=== PATIENT | female | born 1980 | race Asian ===

== ENCOUNTER → 2017-12-04 | Outpatient (CLI) | payer BC ==
[~2017-12-04] MED LIST: DIAZEPAM 5 MG TABLET ONE
--- NOTE | 2017-12-10 13:38 | RADIOLOGY REPORT (SQ) ---
EXAM DESCRIPTION: MRI BREAST BILAT W AND/OR WO COMPLETED DATE/TIME: 12/04/2017 4:50 pm REASON FOR STUDY: UNSPECIFIED LUMP IN THE LEFT BREAST N63.20 UNSPECIFIED LUMP IN THE LEFT BREAST, U NSPECIFIED QUAD COMPARISON: None. PATHOLOGIC CORRELATION: None. CONTRAST TYPE AND DOSE: 10 mL Prohance. RENAL FUNCTION: None required. The patient is less than 50 years old. TECHNIQUE: MR imaging performed with a dedicated breast coil. Pre contrast T1 and T2 weighted images . Pre contrast and post contrast enhanced T1 weighted images with fat saturation. Subtraction images, 3D thick and thin MIPS, and kinetic analysis performed on an independent workstat ion. ([employer] workstation) Magnet strength: 1.5 T LIMITATIONS: Patient vomited after contrast administration. Postcontrast images were delayed 2-3 mi nutes. FINDINGS: BREAST DENSITY: d. The breasts are extremely dense, which lowers the sensitivity of mammog verenice. BACKGROUND PARENCHYMAL ENHANCEMENT:Minimal. RIGHT BREAST: Intact subpectoral implant. No enhancing or suspicious masses. No clumped, regional/ segmental ductal enhancement. CHEST WALL: Normal tissue planes. No abnormal internal mammary nodes. AXILLA: Normal axillary and retro-pectoral nodes. LEFT BREAST:Intact subpectoral implant. Enhancement adjacent to biopsy clip 3 o'clock about 4.5 cm d eep to the nipple. No clumped, regional/segmental ductal enhancement. CHEST WALL: Normal tissue planes. No abnormal internal mammary nodes. AXILLA: Normal axillary and retro-pectoral nodes. OTHER:No identified liver, bone, or lung lesions. No other significant incidental findings. IMPRESSION: Enhancement in the biopsy bed of the left breast. No other suspicious findings. BIRAD: RIGHT BREAST: 2 Benign findings. LEFT BREAST: Known DCIS. No additional lesions identified. RECOMMENDATION: RECOMMENDED FOLLOW-UP: Per Dr. Milligan. TECHNICAL DOCUMENTATION: JOB ID: [id number] [employer]- All Rights Reserved
== END ==
LOC: RAD 13:48
PROVIDERS: ATTEND Surgery
DX: C50.212 Malignant neoplasm of upper-inner quadrant of left female breast (principal); N63.20 Unspecified lump in the left breast, unspecified quadrant
CPT/HCPCS: 77059; C8906

== ENCOUNTER 2017-12-30 07:18 | Day surgery (SDC) | payer BC, OTHER ==
[2017-12-23 11:02] LABS: HEMATOCRIT 38.5 % (36.0-47.0); HEMOGLOBIN 12.6 g/dL (12.0-15.5); MEAN CORPUSCULAR HEMOGLOBIN 27.1 pg (27.0-33.4); MEAN CORPUSCULAR HGB CONC 32.6 g/dL (32.0-36.0); MEAN CORPUSCULAR VOLUME 83 fl (80-97); PLATELET COUNT 220 10^3/uL (150-450); RED BLOOD COUNT 4.64 10^6/uL (3.72-5.28); RED CELL DISTRIBUTION WIDTH 13.5 % (11.5-14.0); WHITE BLOOD COUNT 4.2 10^3/uL (4.0-10.5)
[2017-12-23 11:47] LABS: ANION GAP 12 (5-19); BLOOD UREA NITROGEN 12 mg/dL (7-20); CALCIUM 9.9 mg/dL (8.4-10.2); CARBON DIOXIDE 30 mmol/L (22-30); CHLORIDE 101 mmol/L (98-107); GLUCOSE 80 mg/dL (75-110); SODIUM 143.1 mmol/L (137-145)
--- NOTE | 2017-12-23 12:48 | EKG REPORT ---
SEVERITY:- NORMAL ECG - SINUS RHYTHM : Confirmed by: Dale Kothari MD 23-Dec-2017 12:48:12
[~2017-12-30 07:18] MED LIST changes: +CEFAZOLIN 1 GM/D5W RTU 1 GM/50 ML RTUPB IV PRN; -DIAZEPAM 5 MG TABLET ONE; +LACTATED RINGERS 1000 ML IV PRN; +LIDOCAINE 0.5% INJ-PF (5 MG/ML) 50 ML SDV SUBCUT PRN; +LIDOCAINE 4% TRANSPARENT DRESSING 5 GM KIT TP PRN
[2017-12-30] MEDS ORDERED: FENTANYL CITRATE INJ/PF 100 MCG/2 ML AMPUL ONE ×2 (10:30→10:33)
[2017-12-30] MEDS ORDERED: LIDOCAINE 2% INJ-PF (20 MG/ML) 2 ML AMPUL ONE (10:31)
[2017-12-30] MEDS ORDERED: DEXAMETHASONE SOD PHOSPHATE INJ 4 MG/1 ML VIAL ONE (10:31)
[2017-12-30] MEDS ORDERED: METOCLOPRAMIDE HCL INJ/PF 10 MG/2 ML SDV ONE (10:31)
[2017-12-30] MEDS ORDERED: HYDROMORPHONE HCL INJ/PF 2 MG/ML AMPULE ONE (10:31)
[2017-12-30] MEDS ORDERED: MIDAZOLAM 2 MG/2 ML INJ ONE ×2 (10:31→10:41)
[2017-12-30] MEDS ORDERED: KETOROLAC TROMETHAMINE 60 MG/2 ML SDV ONE (10:31)
[2017-12-30] MEDS ORDERED: ONDANSETRON HCL INJ/PF 4 MG/2 ML SDV ONE (10:31)
[2017-12-30] MEDS ORDERED: NEOSTIGMINE METHYLSULFATE 10 MG/10 ML VIAL ONE (10:31)
[2017-12-30] MEDS ORDERED: PROPOFOL INJ 200 MG/20 ML VIAL IV ONE (10:31)
[2017-12-30] MEDS ORDERED: SUCCINYLCHOLINE CHLORIDE INJ 200 MG/10 ML VIAL ONE (10:31)
[2017-12-30] MEDS ORDERED: FAMOTIDINE INJ/PF 20 MG/2 ML SDV IV ONE (10:41)
[2017-12-30] MEDS ORDERED: SCOPOLAMINE HYDROBROMIDE 1.5 MG PATCH.TD72 ONE (10:42)
--- NOTE | 2017-12-30 10:58 | RADIOLOGY REPORT (SQ) ---
EXAM DESCRIPTION: NM LYMPHATICS/LYMPH GLANDS COMPLETED DATE/TIME: 12/30/2017 9:47 am REASON FOR STUDY: LT BREAST CA D05.10 INTRADUCTAL CARCINOMA IN SITU OF UNSPECIFIED BREAST COMPARISON: None. RADIONUCLIDE AND DOSE: 579 microcuries TC-99m tilmanocept - [employer]. The route of agent administration: Subcutaneous in the skin. TECHNIQUE: The skin of the left breast was prepped in sterile fashion. The radiopharmaceutical was administered in equally divided doses in the periareolar breast. LIMITATIONS: None. FINDINGS: Images demonstrate activity at the injection site. There is also focal activity in the le ft axilla consistent with a sentinel lymph node. IMPRESSION: ADMINISTRATION OF RADIOPHARMACEUTICAL FOR SENTINEL LYMPH NODE EVALUATION. TECHNICAL DOCUMENTATION: JOB ID: [id number] [employer]- All Rights Reserved Reading location - IP/workstation name: [email or web address]
[2017-12-30] MEDS ORDERED: LIDOCAINE 1%/EPINEPHRINE INJ 20 ML VIAL ONE (11:15)
[2017-12-30] MEDS ORDERED: MICROFIBRILLAR COLLAGEN 1 GM PACK ONE (11:15)
[2017-12-30] MEDS ORDERED: METHYLENE BLUE 50 MG/10 ML AMPULE ONE (11:15)
--- NOTE | 2017-12-30 13:54 | Discharge Summary ---
Discharge Summary (SDC) - Discharge Final Diagnosis: Left breast cancer Date of Surgery: 12/30/17 Discharge Date: 12/30/17 Condition: Stable Treatment or Instructions: [facility] [address] [id number] Care Instructions Following Your Lumpectomy Activities: Resume normal activities when you feel comfortable. It is best to remain as active as possible to speed your recovery. It is common to experience some fatigue after surgery and you may find that short naps are helpful. Avoid strenuous activity such as weight lifting, tennis, etc at your surgical site for two weeks. Perform gentle arm exercises daily and do not favor your operative arm to due increased risk of mobility issues postoperatively. No driving for 7 days after surgery. Do not drive if you are taking pain medication other than Tylenol or Ibuprofen. No swimming, tub baths or soaking in a hot tub for 4 weeks. There are no dietary restrictions. Do not smoke as this impairs wound healing. Surgical Site care: You incisions are covered with skin glue. Please leave skin glue alone as it will fall off on its own. You may shower in 48 hours to include washing the wound with soap and water using your hands. Do not scrub the incision. Pat the area dry with a towel. You do not need to recover the wound although some patients find that they feel more comfortable using a light dressing for a few days to absorb any minimal drainage which may occur. If you use a dressing in this manner change it at least every day. Do not use heating pad or apply an ice pack to the operative site. You may apply deodorant if you are careful to avoid getting it on the wound itself. Medications: You may take Toradol one pill by mouth every six hours as needed for pain. Resume all of your normal prescription medications after your surgery unless instructed otherwise. Follow-up: Call our office at to make a follow-up appointment in 10-14 days. Your doctor will call to discuss the pathology report with you as soon as it is available. Concerns: If you had a sentinel lymph node biopsy with your mastectomy, your urine may have a greenish discoloration. This is normal and will resolve as the blue dye slowly leaves your system. Some bruising may occur and will go away over time. If you have a fever of 101.5 or greater, chills, redness at the incision site , excessive drainage from your wound or severe pain not relieved by pain medication, call your doctor. A physician is available 24 hours a day 7 days a week in addition to regular office hours. If problems arise after normal office hours please call the hospital at . Please call if you have any questions or concerns. Prescriptions: Ketorolac Tromethamine [Toradol 10 mg Tablet] 10 mg PO Q6HP PRN #20 tablet PRN Reason: Discharge Diet: As Tolerated Discharge Activity: Activity As Tolerated, Walk Frequently Report the Following to Your Physician Immediately: Fever over 101 Degrees, Unusual Bleeding, Redness, Swelling, Warmth, Drainage-Foul Smelling
--- NOTE | 2017-12-30 13:55 | Operative Report ---
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 Status post subpectoral breast implants POSTOPERATIVE DIAGNOSIS: Same dense fibrocystic disease OPERATION: 1. [place] lymph node biopsy 1 left axilla using dual mapping technique. 2. Ultrasound directed left breast lumpectomy of 2 areas of DCIS left breast upper outer quadrant. 3. Excision of cavity margin left breast lumpectomy site SURGEON: VLADISLAV STEWART DIRECTOR STARS: NANCY MALIK ANESTHESIA: GA TISSUE REMOVED OR ALTERED: 1. [place] lymph node 1 left axilla. 2. Left breast lumpectomy specimen. 3. Shave margin left lumpectomy cavity COMPLICATIONS: None ESTIMATED BLOOD LOSS: Minimal INTRAOPERATIVE FINDINGS: See below PROCEDURE: The patient was seen in the preop holding area after undergoing lymphoscintigraphy of the left breast. There was an area of increased uptake in the left axilla consistent with successful flow scintigraphic mapping of the left axillary lymph node. The patient was taken to the main operating room and also [facility] where general anesthesia was induced. The arm was abducted, and left breast and nipple exposed. As part of the dual mapping technique for sentinel node biopsy , we performed the methylene blue injection of approximately 2-1/2 cc of full- strength dye into the intradermal space of the left breast, areola border, 2 o' clock position. Left breast was massaged. The left breast and axilla were prepped and draped in sterile fashion. Surgical plan and surgical timeout were conducted. We completed the first portion of the operation by performing the sentinel lymph node biopsy. An area of increased activity in the left axilla was identified. Skin was anesthetized with quarter percent Marcaine with a 25- gauge needle. A small 2 cm incision was made in the low axilla. Using a combination of blunt and electrocautery dissection, the first and only sentinel lymph node was identified. In vivo count was 4722. The lymph node was hot and blue and consisted of possibly small lymph nodes adjacent to each other. The nodes were excised with electrocautery and use of clips. Ex vivo count was 5521. Return to the axilla and there was only low counts left no >50. We now rotated the patient for optimal exposure to the breast left side. Using ultrasound as a real-time guide, we identified the 2 areas of DCIS in the left breast, the more lateral mass with microcalcifications and clip marker was approximately 2-1/2-3 cm in diameter and the slightly more medial mass was approximately 1/2 cm in diameter. Both had similar ultrasonographic features consistent with previous ultrasonography performed by Dr. Milligan and Dr. Riggs. The medial mass was approximately 4 cm from the nipple and the more lateral mass was approximately 6-7 cm from the nipple. We made a marking on the skin for the planned lumpectomy incision. This is a curvilinear working. Skin was anesthetized with quarter percent Marcaine. A 5 cm long incision was made in the upper outer quadrant of the left breast. Using ultrasound as a guide intraoperatively, we directed our dissection to encompass the 2 areas of DCIS in the substance of the midportion of the breast parenchyma. Of note the breast parenchyma medially and apically extremely dense and electrocautery was used almost exclusively. Small bleeders were cauterized as encountered. The excised specimen was approximately 7 cm in diameter and 5 cm deep. Sutures were placed in the 12 o'clock position marking the superior side of the specimen , towards the patient's head with a short silk suture and a long suture placed in the lateral position representing the o'clock position. Specimen was now radiographed by Dr. Milligan in the operating room using the portable mammographic specimen imaging machine. 2 images were shot one in the AP position and one at 90. Both images demonstrated retention of the clip marker in the lateral DCIS mass and the smaller DCIS mass medially. The specimen was then sent to radiology where repeat images were obtained and interpreted by Dr. Valdes in, radiologist to confirm acquisition of the clip marker as well as the 2 masses of DCIS is demonstrated by the clusters of microcalcifications in the center of the specimen. Because we did not ask pathology to perform frozen section evaluation of the lumpectomy margins, we performed Brain excision of the cavity a bit of this as a separate specimen. This shave margin was taken from the superior deep inferior and medial aspects of the distal lumpectomy cavity using electrocautery dissection. The deep tissue came directly off of the pectoralis major muscle. Laterally there was essentially no breast tissue left. Did not excise any additional skin. This margin was marked with a short suture in the superior position and a long suture in the lateral position and 3 clips were placed in the center inside of the shaved margin. It was sent to pathology for permanent analysis. At this point felt the operation was complete. Sponge and needle counts are correct. Hemostasis was achieved. Avitene placed in the recesses of the wound , wounds closed with 3-0 Vicryl suture, Dermabond glue. Patient tolerated procedure well, extubated, and taken recovery room in stable condition. The physician certified physical therapist assistant, Ms. Carlton, provided assistance during this case by: Assisting and port insertion, retracting tissue, instillation of local anesthesia and closure of skin incisions.
--- NOTE | 2017-12-30 14:09 | RADIOLOGY REPORT (SQ) ---
EXAM DESCRIPTION: BREAST SPECIMEN COMPLETED DATE/TIME: 12/30/2017 1:43 pm REASON FOR STUDY: SPECIMEN LEFT BREAST D05.10 INTRADUCTAL CARCINOMA IN SITU OF UNSPECIFIED BREAST COMPARISON: None. TECHNIQUE: Specimen radiograph from breast procedure performed in the operating room. LIMITATIONS: None. FINDINGS: Specimen radiograph from breast procedure performed in the operating room. Please see procedure note for details and final pathology. IMPRESSION: Specimen radiograph. TECHNICAL DOCUMENTATION: JOB ID: [id number] Reading location - IP/workstation name: [email or web address] [id number]
[2017-12-30] MEDS ORDERED: MEPERIDINE HCL/PF INJ 25 MG/1 ML DISP.SYRIN IV PRN (14:20)
[2017-12-30] MEDS ORDERED: DIPHENHYDRAMINE HCL 50 MG/ML VIAL IV PRN (14:20)
[2017-12-30] MEDS ORDERED: FENTANYL CITRATE INJ/PF 100 MCG/2 ML AMPUL IV PRN ×3 (14:20)
[2017-12-30] MEDS ORDERED: PROMETHAZINE HCL INJ 25 MG/1 ML VIAL IV PRN ×2 (14:20)
[2017-12-30] MEDS ORDERED: ONDANSETRON HCL INJ/PF 4 MG/2 ML SDV IV PRN (14:20)
[2017-12-30] MEDS: FENTANYL CITRATE INJ/PF 100 MCG/2 ML AMPUL ONE ×2 (14:35→14:40)
[2017-12-30] MEDS: PROMETHAZINE HCL INJ 25 MG/1 ML VIAL ONE ×2 (15:25→15:45)
[2017-12-30] MEDS ORDERED: KETOROLAC TROMETHAMINE INJ/PF 30 MG/1 ML SDV IV PRN (15:35)
[2017-12-30] MEDS ORDERED: KETOROLAC TROMETHAMINE 10 MG TABLET PO PRN (15:36)
[2017-12-30 17:41] VITALS: BP 104/68
== END 2017-12-30 17:33 | disposition home or self-care (01) ==
LOC: OROUT 07:18
PROVIDERS: ATTEND Surgery
PROC: 07B60ZX Excision of Left Axillary Lymphatic, Open Approach, Diagnostic (ICD-10-PCS; 2017-12-30)
PROC: 0HBU0ZZ Excision of Left Breast, Open Approach (ICD-10-PCS; principal; 2017-12-30 11:45)
DX: D05.12 Intraductal carcinoma in situ of left breast (principal); Z98.82 Breast implant status
CPT/HCPCS: 1610; 36415; 76098; 78195; 80048; 85027; 88305; 88307; 88342; 93005; 93010; A9520; J0330; J0690; J1100; J1170; J1885; J2250; J2405; J2550; J2704; J2765; J3010; J3490; Q9968; S0028